=== PATIENT | female | born 1970 | race Caucasian/White ===

== ENCOUNTER 2016-09-27 17:15 | Emergency (ER) | payer BC ==
[~2016-09-27] VITALS: Ht 167.6 cm; Wt 95.0 kg
[~2016-09-27 17:15] MED LIST: ADVAIR 100/501 DISK IH; AUGMENTIN875 MG PO; ENDOCET 5-3251 EACH PO; Motrin PO; PROVENTIL17 GM IH; Proventil,Ventolin H IH
[2016-09-27 18:40] LABS: HEMATOCRIT 39.4 % (36.0-46.0); MCH 27.7 PG (29.0-34.0); MCHC 33.2 G/DL (30.0-36.0); MCV 83.3 FL (83-99); MEAN PLAT.VOLUME 9.5 uM^3 (9.5-12.4); PLATELET COUNT 295 K/uL (156-360); RBC DIS.WIDTH-CV 14.8 % (11.8-14.6); RBC DIS.WIDTH-SD 44.2 % (39-53); RED BLOOD COUNT 4.73 M/uL (3.80-5.20)
[2016-09-27 18:55] LABS: CHLORIDE 112 mEq/L (99-109); POTASSIUM 3.6 mEq/L (3.7-5.4); SODIUM 141 mEq/L (136-147)
[2016-09-27 18:57] LABS: GLUCOSE 87 mg/dL (70-99)
[2016-09-27 18:59] LABS: ANION GAP 7 MEQ/L (2-14); TOTAL BILIRUBIN 0.2 mg/dL (0.0-1.0)
[2016-09-27 19:01] LABS: ALKALINE PHOSPHATASE 75 IU/L (3-129); GFR ESTIMATE (CALCULATED) > 59 mL/min/
[2016-09-27 19:02] LABS: UREA NITROGEN (BUN) 17 mg/dL (9-23)
[2016-09-27 19:05] LABS: LIPASE 21 U/L (1.0-51.0)
[2016-09-27 19:13] LABS: QUANTITATIVE HCG < 4.0 MIU/ML
[2016-09-27 20:23] LABS: ADD MIUA? NO; BILIRUBIN NEGATIVE; BLOOD NEGATIVE; COLOR YELLOW ((YELLOW)); GLUCOSE (STRIP) NEGATIVE; KETONES NEGATIVE; LEUKOCYTES NEGATIVE; NITRITE NEGATIVE; PROTEIN (STRIP) NEGATIVE; SPECIFIC GRAVITY 1.024 (1.000-1.030); UCUL ADDED? NO; UROBILINOGEN 0.2 MG/DL (0.2-1.0)
[2016-09-27] MEDS ORDERED: LYRICA150 MG PO (20:37)
[2016-09-27] MEDS ORDERED: ZOLOFT50 MG PO (20:38)
[2016-09-27] MEDS ORDERED: WELLBUTRIN75 MG PO (20:38)
[2016-09-27] MEDS ORDERED: AMLODIPINE BESYL5 MG PO (20:38)
[2016-09-27 20:49] LABS: TROP-I INTERPRETATION NEGATIVE; TROPONIN-I < 0.01 ng/mL (0.0-0.30)
[2016-09-27] MEDS ORDERED: ZOFRAN ODT4 MG PO (22:53)
[2016-09-27] MEDS ORDERED: PERCOCET 5/31 TABLET PO (22:53)
[2016-09-27 23:04] VITALS: BP 151/90
== END 2016-09-27 23:09 | disposition home or self-care (01) ==
LOC: RME 17:15 → EME 17:15 → RME 23:09
DX: K80.20 Calculus of gallbladder without cholecystitis without obstruction (principal); R10.13 Epigastric pain; J45.909 Unspecified asthma, uncomplicated; Z87.891 Personal history of nicotine dependence
CPT/HCPCS: 76705; 80053; 81003; 83690; 84484; 84702; 85027; 93005; 99281; 99285

== ENCOUNTER 2016-12-27 05:11 | Emergency (ER) | payer BC ==
[~2016-12-27] VITALS: Ht 167.6 cm; Wt 109.2 kg
[~2016-12-27 05:11] MED LIST changes: +AMLODIPINE BESYL5 MG PO; +LYRICA150 MG PO; +PERCOCET 5/31 TABLET PO; +WELLBUTRIN75 MG PO; +ZOFRAN ODT4 MG PO; +ZOLOFT50 MG PO
[2016-12-27 06:01] LABS: HEMATOCRIT 38.9 % (36.0-46.0); MCH 27.7 PG (29.0-34.0); MCHC 32.6 G/DL (30.0-36.0); MCV 84.7 FL (83-99); MEAN PLAT.VOLUME 9.4 uM^3 (9.5-12.4); PLATELET COUNT 257 K/uL (156-360); RBC DIS.WIDTH-CV 12.5 % (11.8-14.6); RBC DIS.WIDTH-SD 38.4 % (39-53); RED BLOOD COUNT 4.59 M/uL (3.80-5.20); WHITE BLOOD COUNT 8.4 K/uL (4.1-10.2)
[2016-12-27 06:09] LABS: CHLORIDE 104 mEq/L (99-109); SODIUM 141 mEq/L (136-147)
[2016-12-27 06:11] LABS: GLUCOSE 116 mg/dL (70-99)
[2016-12-27 06:13] LABS: ANION GAP 12 MEQ/L (2-14); TOTAL BILIRUBIN 0.3 mg/dL (0.0-1.0)
[2016-12-27 06:15] LABS: ALKALINE PHOSPHATASE 57 IU/L (3-129); GFR ESTIMATE (CALCULATED) 56 mL/min/
[2016-12-27 06:16] LABS: UREA NITROGEN (BUN) 20 mg/dL (9-23)
[2016-12-27 06:24] LABS: QUANTITATIVE HCG < 4.0 MIU/ML
[2016-12-27 06:45] LABS: ADD MIUA? NO; BILIRUBIN NEGATIVE; BLOOD NEGATIVE; COLOR COLORLESS ((YELLOW)); GLUCOSE (STRIP) NEGATIVE; KETONES NEGATIVE; LEUKOCYTES NEGATIVE; NITRITE NEGATIVE; PROTEIN (STRIP) NEGATIVE; SPECIFIC GRAVITY 1.008 (1.000-1.030); UCUL ADDED? NO; UROBILINOGEN 0.2 MG/DL (0.2-1.0)
[2016-12-27 07:19] LABS: TROP-I INTERPRETATION NEGATIVE; TROPONIN-I < 0.01 ng/mL (0.0-0.30)
[2016-12-27 07:55] LABS: LIPASE 17 U/L (1.0-51.0)
[2016-12-27] MEDS ORDERED: ZOFRAN8 MG PO (08:11)
[2016-12-27] MEDS ORDERED: NORCO 5/3251 TABLET PO (08:11)
[2016-12-27 08:28] VITALS: BP 116/75
== END 2016-12-27 08:36 | disposition home or self-care (01) ==
LOC: EME 05:11
PROVIDERS: Emergency Medicine
DX: G89.18 Other acute postprocedural pain (principal); R10.13 Epigastric pain; J45.909 Unspecified asthma, uncomplicated; K21.9 Gastro-esophageal reflux disease without esophagitis; M79.7 Fibromyalgia; I10 Essential (primary) hypertension; Z87.891 Personal history of nicotine dependence
CPT/HCPCS: 74177; 80053; 81003; 83690; 84484; 84702; 85027; 93005; 99281; 99285; J2270; J2405; J7030; S0028